=== PATIENT | male | born 1950 | race Caucasian/White ===

== ENCOUNTER → 2017-06-11 | Outpatient (CLI) | payer OTHER ==
--- NOTE | 2017-06-11 14:46 | RAD ---
Right knee, 3 views, 06/11/2017: History: Knee pain The bony structures are demineralized. There is mild narrowing of the medial compartment of the knee joint with moderate marginal spurring. There is moderate degenerative change at the patellofemoral articulation. No fracture or dislocation is identified. No significant joint effusion is evident. Mild scattered arterial calcifications are present. IMPRESSION: 1. Demineralization. 2. Moderate degenerative change. 3. No acute bony abnormality is detected.
== END | disposition home or self-care (01) ==
LOC: DXRADRC 08:55
PROVIDERS: ATTEND Physician Assistant
DX: M17.11 Unilateral primary osteoarthritis, right knee (principal); M25.861 Other specified joint disorders, right knee
CPT/HCPCS: 73562

== ENCOUNTER → 2022-02-06 | Outpatient (CLI) | payer MEDICARE ==
--- NOTE | 2022-02-06 15:59 | RAD ---
XR CERVICAL SPINE 4-5V History: Chronic neck pain, no known injury. Comparison: None. Technique: 6 views of the cervical spine. Findings: There are 7 non-rib bearing cervical vertebral segments. There is no evidence of fracture. No destructive osseous lesions are seen. Mild anterolisthesis of C3 on C4 C4 and C5, and C7 on T1. Advanced multilevel facet hypertrophic degenerative changes which together with uncovertebral hypertr ophy narrow the neural foramina at multiple levels, greatest at C4-C5 on the left. Severe disc space narrowing C5-C6 and C6-C7. Bilateral carotid bulb calcifications. IMPRESSION: 1. Advanced multilevel degenerative disc and facet disease of the cervical spine. Electronically signed by: Chang Santos MD (02/06/2022 3:57 PM) [id number]
== END ==
LOC: RAD 09:53
PROVIDERS: ATTEND Physician Assistant
DX: M47.812 Spondylosis without myelopathy or radiculopathy, cervical region (principal); I65.23 Occlusion and stenosis of bilateral carotid arteries; M48.07 Spinal stenosis, lumbosacral region; M43.13 Spondylolisthesis, cervicothoracic region; M47.892 Other spondylosis, cervical region
CPT/HCPCS: 72050